=== PATIENT | male | born 1965 | race Caucasian/White ===

== ENCOUNTER 2021-05-28 14:05 | Emergency (ER) | payer BC ==
[2021-05-28] MEDS ORDERED: Sodium Chloride 0.9% 10 ML Syringe FLUSH PRN (17:28)
[2021-05-28 17:42] LABS: CORONAVIRUS COVID-19 NAA POSITIVE (NEGATIVE)
[2021-05-28] MEDS ORDERED: Acetaminophen 325 MG Tab PO ONE (18:26)
[2021-05-28] MEDS ORDERED: Dexamethasone 4 MG Tab PO ONE (18:30)
--- NOTE | 2021-05-28 20:09 | EDM.PDOC ---
ED HPI GENERAL MEDICAL PROBLEM - General Chief Complaint: Respiratory Problem Stated Complaint: COVID +\\ SOB Time Seen by Provider: 05/28/21 17:02 Source of Information: Reports: Patient, RN Notes Reviewed History Limitations: Reports: No Limitations - History of Present Illness INITIAL COMMENTS - FREE TEXT/NARRATIVE: Patient is a 55-year-old male presenting to the emergency department for evaluation of Covid symptoms that began last Wednesday. He reports cough, shortness of breath, headache, weakness, fatigue, nausea, and diarrhea. He has had no vomiting. He presented to the clinic prior to coming to ER and was told to come to ER, likely because his oxygen saturations were low. He does complain of "having problems regulating his temperature "which she describes as cold sweats and hot flashes, however he does not have a thermometer at home and has not been able to check his temperature. Denies any significant chest pain. Does not feel short of breath at rest but states he does become dyspneic with exertion. He denies any chronic underlying medical conditions. He was not vaccinated for Covid. Generalized Pain Score (Numeric/FACES): 5 - Related Data Allergies Allergy/AdvReac Type Severity Reaction Status Date / Time codeine Allergy Nausea Verified 05/28/21 16:16 Home Meds: Home Meds Azithromycin 250 mg PO DAILY 4 Days #4 tablet 05/28/21 [Rx] C/Sourcherry/Celery/Grape Seed [Tart [place]] 1 tab PO DAILY 05/28/21 [History] Cider Vinegar [Apple Cider Vinegar] 300 mg PO DAILY 05/28/21 [History] Fish Oil/[place]-3 Fatty Acids [Fish Oil 1,000 MG] 1 tab PO DAILY 05/28/21 [History] Glucosamine [Glucosamine Sulfate] 1 tab PO DAILY 05/28/21 [History] Multivitamin [One-Daily Multi-Vitamin] 1 tab PO DAILY 05/28/21 [History] Ubidecarenone [COQ-10] 1 tab PO DAILY 05/28/21 [History] dexAMETHasone [Decadron] 6 mg PO DAILY 4 Days #4 tablet 05/28/21 [Rx] Past Medical History HEENT History: Reports: Impaired Vision - Past Surgical History GI Surgical History: Reports: Appendectomy Other Musculoskeletal Surgeries/Procedures:: broke nose and broken heel Social & Family History - Tobacco Use Tobacco Use Status *Q: Never Tobacco User - Caffeine Use Caffeine Use: Reports: Coffee, Energy Drinks, Soda, Tea - Alcohol Use Days Per Week of Alcohol Use: 2 Number of Drinks Per Day: 2 Total Drinks Per Week: 4 - Recreational Drug Use Recreational Drug Use: No ED ROS GENERAL - Review of Systems Review Of Systems: See Below Constitutional: Reports: Fever, Chills, Fatigue, Decreased Appetite HEENT: Reports: No Symptoms. Denies: Ear Pain, Throat Pain Respiratory: Reports: Shortness of Breath, Cough. Denies: Wheezing, Pleuritic Chest Pain Cardiovascular: Reports: Dyspnea on Exertion. Denies: Chest Pain, Lightheadedness, Syncope Endocrine: Reports: No Symptoms GI/Abdominal: Reports: Diarrhea. Denies: Nausea, Vomiting : Reports: No Symptoms Musculoskeletal: Reports: No Symptoms Skin: Reports: No Symptoms Neurological: Reports: No Symptoms Psychiatric: Reports: No Symptoms Hematologic/Lymphatic: Reports: No Symptoms Immunologic: Reports: No Symptoms ED EXAM, GENERAL - Physical Exam Exam: See Below Exam Limited By: No Limitations General Appearance: Alert, WD/WN, No Apparent Distress Respiratory/Chest: No Respiratory Distress, No Accessory Muscle Use, Chest Non- Tender, Other (Fine crackles to bilateral posterior bases.) Cardiovascular: Normal Peripheral Pulses, Regular Rate, Rhythm, No Edema, No Gallop, No JVD, No Murmur, No Rub GI/Abdominal: Normal Bowel Sounds, Soft, Non-Tender, No Organomegaly, No Distention, No Abnormal Bruit, No Mass Neurological: Alert, Oriented, CN II-XII Intact, Normal Cognition, Normal Gait, Normal Reflexes, No Motor/Sensory Deficits Psychiatric: Normal Affect, Normal Mood Skin Exam: Warm, Dry, Intact, Normal Color, No Rash #1 Interpretation EKG Date: 05/28/21 Time: 17:48 Rhythm: NSR Rate (Beats/Min): 98 Hood: LAD-Left Hood Deviation P-Wave: Present QRS: Normal ST-T: Normal QT: Normal Course - Vital Signs Last Recorded V/S: Last Vital Signs Temp 99.1 F 05/28/21 16:07 Pulse 82 05/28/21 16:07 Resp 24 H 05/28/21 16:07 BP 124/91 H 05/28/21 16:07 Pulse Ox 83 L 05/28/21 16:07 - Orders/Labs/Meds Labs: Laboratory Tests 05/28/21 05/28/21 05/28/21 Range/Units 16:28 17:40 17:40 WBC 9.24 H (4.23-9.07) K/mm3 RBC 5.42 (4.63-6.08) M/mm3 Hgb 15.8 (13.7-17.5) gm/dl Hct 45.7 (40.1-51.0) % MCV 84.3 (79.0-92.2) fl MCH 29.2 (25.7-32.2) pg MCHC 34.6 (32.2-35.5) g/dl RDW Std Deviation 42.4 (35.1-43.9) fL Plt Count 239 (163-337) K/mm3 MPV 10.5 (9.4-12.3) fl Neut % (Auto) 88.0 H (34.0-67.9) % Lymph % (Auto) 5.3 L (21.8-53.1) % [place] % (Auto) 6.1 (5.3-12.2) % Eos % (Auto) 0 L (0.8-7.0) Baso % (Auto) 0.2 (0.1-1.2) % Neut # (Auto) 8.13 H (1.78-5.38) K/mm3 Lymph # (Auto) 0.49 L (1.32-3.57) K/mm3 [place] # (Auto) 0.56 (0.30-0.82) K/mm3 Eos # (Auto) 0.00 L (0.04-0.54) K/mm3 Baso # (Auto) 0.02 (0.01-0.08) K/mm3 Manual Slide Review D-Dimer, Quantitative 1.04 H (0.19-0.50) mg/L Sodium (136-145) mEq/L Potassium (3.5-5.1) mEq/L Chloride (98-107) mEq/L Carbon Dioxide (21-32) mEq/L Anion Gap (5-15) BUN (7-18) mg/dL Creatinine (0.7-1.3) mg/dL Est Cr Clr Drug Dosing mL/min Estimated GFR (MDRD) (>60) mL/min BUN/Creatinine Ratio (14-18) Glucose (70-99) mg/dL Calcium (8.5-10.1) mg/dL Total Bilirubin (0.2-1.0) mg/dL AST (15-37) U/L ALT (16-63) U/L Alkaline Phosphatase (46-116) U/L Troponin I (0.00-0.056) ng/mL C-Reactive Protein (<1.0) mg/dL NT-Pro-B Natriuret Pep (0-125) pg/mL Total Protein (6.4-8.2) g/dl Albumin (3.4-5.0) g/dl Globulin gm/dL Albumin/Globulin Ratio (1-2) Influenza Type A RNA Negative (NEGATIVE) Influenza Type B RNA Negative (NEGATIVE) SARS-CoV-2 RNA (ZIA) Positive H (NEGATIVE) 05/28/21 05/28/21 Range/Units 17:40 17:40 WBC (4.23-9.07) K/mm3 RBC (4.63-6.08) M/mm3 Hgb (13.7-17.5) gm/dl Hct (40.1-51.0) % MCV (79.0-92.2) fl MCH (25.7-32.2) pg MCHC (32.2-35.5) g/dl RDW Std Deviation (35.1-43.9) fL Plt Count (163-337) K/mm3 MPV (9.4-12.3) fl Neut % (Auto) (34.0-67.9) % Lymph % (Auto) (21.8-53.1) % [place] % (Auto) (5.3-12.2) % Eos % (Auto) (0.8-7.0) Baso % (Auto) (0.1-1.2) % Neut # (Auto) (1.78-5.38) K/mm3 Lymph # (Auto) (1.32-3.57) K/mm3 [place] # (Auto) (0.30-0.82) K/mm3 Eos # (Auto) (0.04-0.54) K/mm3 Baso # (Auto) (0.01-0.08) K/mm3 Manual Slide Review D-Dimer, Quantitative (0.19-0.50) mg/L Sodium 135 L (136-145) mEq/L Potassium 4.2 (3.5-5.1) mEq/L Chloride 98 (98-107) mEq/L Carbon Dioxide 26 (21-32) mEq/L Anion Gap 15.2 H (5-15) BUN 28 H (7-18) mg/dL Creatinine 1.4 H (0.7-1.3) mg/dL Est Cr Clr Drug Dosing 61.56 mL/min Estimated GFR (MDRD) 53 (>60) mL/min BUN/Creatinine Ratio 20.0 H (14-18) Glucose 130 H (70-99) mg/dL Calcium 8.6 (8.5-10.1) mg/dL Total Bilirubin 0.5 (0.2-1.0) mg/dL AST 78 H (15-37) U/L ALT 54 (16-63) U/L Alkaline Phosphatase 58 (46-116) U/L Troponin I < 0.017 (0.00-0.056) ng/mL C-Reactive Protein 16.0 H* (<1.0) mg/dL NT-Pro-B Natriuret Pep 63 (0-125) pg/mL Total Protein 7.2 (6.4-8.2) g/dl Albumin 3.2 L (3.4-5.0) g/dl Globulin 4.0 gm/dL Albumin/Globulin Ratio 0.8 L (1-2) Influenza Type A RNA (NEGATIVE) Influenza Type B RNA (NEGATIVE) SARS-CoV-2 RNA (ZIA) (NEGATIVE) Meds: Medications Discontinued Medications Generic Name Dose Route Start Last Admin Trade Name Freq PRN Reason Stop Dose Admin Acetaminophen 975 mg 05/28/21 18:26 05/28/21 18:45 Acetaminophen 325 Mg Tab PO 05/28/21 18:27 975 mg NOW ONE Administration Dexamethasone 6 mg 05/28/21 18:30 05/28/21 18:45 Dexamethasone 4 Mg Tab PO 05/28/21 18:31 6 mg ONETIME ONE Administration Sodium Chloride 10 ml 05/28/21 17:28 05/28/21 17:40 Sodium Chloride 0.9% 10 Ml Syringe FLUSH 10 ml ASDIRECTED PRN Administration Keep Vein Open - Re-Assessments/Exams Free Text/Narrative Re-Assessment/Exam: Patient is a 55-year-old male presenting to the emergency department for eval uation of Covid symptoms. He has been ill since Wednesday. On arrival to ER, oxygen saturations were 83% on room air. He is saturating in the mid 90s on 2 L by nasal cannula. Exam, he has fine crackles to bilateral bases. Exam is otherwise unremarkable. I have ordered blood work, chest x-ray, EKG, Covid and flu testing. 05/28/21 20:03 Hematology is significant for WBC minimally elevated at 9.24, D-dimer 1.04, sodium 135, and a gap 15.2, BUN 28, creatinine 1.4, AST 78, CRP 16.0. Troponin is undetectably low. Patient is Covid positive. Chest x-ray shows bilateral Covid pneumonia. Patient is maintaining oxygen saturations in the mid 90s on 2 L by nasal cannula. Discussed the option of possible transfer to an outlying tertiary care facility, however there is no way to predict where he may end up as most hospitals in the area are completely full. He has opted to go home with supplemental O2. He will be started on dexamethasone. He also started on azithromycin to cover for possible secondary bacterial infection given his slight elevation in WBCs. He will be provided with a pulse oximeter. His roommate will machine operator picker his oxygen prior to picking him up. I will give him his first dose of azithromycin here. Discussed with him return precautions and he verbalized understanding of this. Discharge instructions as documented. Departure - Departure Time of Disposition: 20:07 Disposition: Home, Self-Care 01 Condition: Fair Clinical Impression: Pneumonia due to COVID-19 virus - Discharge Information *PRESCRIPTION DRUG MONITORING PROGRAM REVIEWED*: No *COPY OF PRESCRIPTION DRUG MONITORING REPORT IN PATIENT ARIES: No Prescriptions: Azithromycin 250 mg PO DAILY 4 Days #4 tablet dexAMETHasone [Decadron] 6 mg PO DAILY 4 Days #4 tablet Instructions: COVID-19 Referrals: PCP,None [Primary Care Provider] - Forms: ED Department Discharge Additional Instructions: Take the dexamethasone and azithromycin as prescribed. Use Tylenol and ibuprofen routinely for fever and body aches. Wear home oxygen from 1 to 3 L to keep saturations greater than 92%. If you are requiring 4 more liters of oxygen to keep her saturation above 92% or you experience any other new or worsening symptoms of concern, recommend return to ER for reevaluation. Sepsis Event Note (ED) - Evaluation Sepsis Screening Result: Possible Sepsis Risk
--- NOTE | 2021-05-29 06:37 | CR ---
Chest: Frontal view of the chest was obtained. Comparison: No prior chest imaging is available. Patchy areas of increased density are seen on both sides of the chest. Heart size is felt to be slightly enlarged. Minimal tortuosity of the thoracic aorta is seen. Bony structures show nothing acute. Impression: 1. Increased density on both sides of the chest highly suspicious for COVID pneumonia. Please correlate. Diagnostic code #3
== END 2021-05-28 21:10 | disposition home or self-care (01) ==
LOC: JD.ED 14:05
DX: U07.1 COVID-19 (principal); J12.82 Pneumonia due to coronavirus disease 2019; Z88.5 Allergy status to narcotic agent
CPT/HCPCS: 0240U; 36415; 71045; 80053; 83880; 84484; 85025; 85379; 86140; 93005; 99285; A9270; J8540